=== PATIENT | female | born 1995 | race Caucasian/White ===

== ENCOUNTER 2023-04-04 08:37 | Emergency (ER) | payer BC, SELFPAY ==
--- NOTE | 2023-04-04 08:39 | ED.EAR ---
HPI - Ear Problem General Chief complaint: Ear Stated complaint: Earache Time Seen by Provider: 04/04/23 08:39 Source: patient Mode of arrival: ambulatory Limitations: no limitations History of Present Illness HPI Narrative: Torrie is a 28-year-old female patient presenting to clinic today with complaints of ear pain x2 days. She reports no known fever or chills. Is having pain to the left ear and the pain is radiating into her left side neck/throat. Related Data Home Medications Medication Instructions Recorded Confirmed buspirone 10 mg tablet 10 mg PO DAILY 04/04/23 04/04/23 sertraline 100 mg tablet 100 mg PO DAILY 04/04/23 04/04/23 Allergies Allergy/AdvReac Type Severity Reaction Status Date / Time Penicillins Allergy Rash Verified 04/04/23 08:51 Review of Systems Review of Systems: Pertinent positives per HPI. Patient denies any fever, chills, rash, headache, visual changes, dizziness, cough, shortness of breath, chest pain, palpitations, nausea, vomiting, diarrhea, constipation, abdominal pain, or any urinary issues. PMFSH Comments At the time of my signature, I reviewed and agree with the nursing past medical, surgical, social, and family history. There is no relevant family history pertinent to the patient complaint. Exam Narrative: General: Well-developed, well nourished, in no apparent distress Head: Normocephalic, atraumatic Eyes: Pupils equally round and reactive to light bilaterally, EOM intact, sclera and conjunctive clear, no discharge, lids normal Ears: TMs intact and clear, ear canals clear, no drainage, grossly hearing normal. Nose: Nares patent, no discharge, no inflammation, no sinus tenderness. Mouth: Oral pharynx without lesions or masses, good dentition, MMM. Neck: Supple, trachea midline, no enlargement of anterior or posterior cervical nodes, no thyroid masses or goiter palpable. Cardio: Regular rate and rhythm, s1 and s2 normal, no murmur appreciated. Resp: Clear to auscultation bilaterally, no rhonchi, rales, wheezing or rubs Course Course Emergency Course: Portions of this record may have been created with voice recognition software. Level of Care: Express Care Visit Vital Signs Vital signs: Vital signs reviewed Medical Decision Making MDM Narrative Medical decision making narrative: At the time of visit patient is resting comfortably on the exam table. Patient appears to be nontoxic. Strep test was performed and was negative. We will send for culture. I suspect patient has left-sided eustachian tube dysfunction. Supportive measures were discussed with the patient and they voiced understanding discharge instructions and agrees to treatment plan. Return precautions reviewed Differential Diagnosis Differential Diagnosis: Otitis media, otitis externa, eustachian tube dysfunction, cerumen impaction, serous otitis, upper respiratory infection Discharge Plan Discharge Clinical Impression: ETD (eustachian tube dysfunction) Qualifiers: Laterality: left Qualified Code(s): H69.92 - Unspecified Eustachian tube disorder, left ear Patient Disposition: Home, Self-Care Condition: Stable Instructions: Antibiotic Form, Earache (ED) Additional Instructions: Strep screen was negative in the clinic today. We will send for culture if this comes back positive we will contact him place you on antibiotics at that time. Increase fluids and stay well hydrated Tylenol/motrin for pain/fever Flonase and OTC antihistamines as directed Vicks vapor rub to open sinuses Sinus rinses for congestion Cepacol spray, cough drops, throat lozenges, warm tea with honey/lemon, gargle salt water to soothe throat BRAT diet for diarrhea Clear liquids x 24 hours then advance as tolerated for nausea/vomiting Go to the ED if you develop a worsening in your condition- high fever not controlled by Tylenol or Motrin, dehydration, weakness, lethargy, shortness of breath, or cristina
[2023-04-04 08:47] VITALS: BP 110/80; PULSE 99; RESP 16; TEMP 36.9; O2SAT 99
== END 2023-04-04 09:15 | disposition home or self-care (01) ==
PROVIDERS: Emergency Provider Nurse Practitioner Family; PCP Nurse Practitioner Family
DX: H69.92 Unspecified Eustachian tube disorder, left ear (principal)
CPT/HCPCS: 87081; 87880; 99213; G0463

== ENCOUNTER 2024-12-14 10:08 | Emergency (ER) | payer OTHER, BC, SELFPAY ==
--- NOTE | ~2024-12-14 | XR_ITS ---
EXAMINATION: XR ankle LT min 3V DATE: 12/14/2024 10:32 INDICATION: Left ankle injury TECHNIQUE: Anteroposterior, oblique, mortise, and lateral views of the left ankle were obtained. COMPARISON: None. FINDINGS: Alignment is normal. No fracture. Joint spaces are well maintained. No ankle joint effusion. Mild soft tissue swelling about the lateral malleolus. IMPRESSION: 1. No osseous abnormality. Reviewed, dictated and finalized at location A. IMPRESSION: 1. No osseous abnormality.
[2024-12-14 10:19] VITALS: BP 121/84; PULSE 90; RESP 18; TEMP 36.6; O2SAT 99
--- NOTE | 2024-12-14 11:03 | ED.LOWEXIN ---
HPI - Extremity Injury (Lower) General Chief Complaint: Extremity Injury, Lower Stated Complaint: L ANKLE INJURY Source: patient Mode of arrival: ambulatory Limitations: no limitations History of Present Illness HPI Narrative: 29-year-old female presented for complaint of left ankle pain and swelling following an injury yesterday. She states she felt ankle and fell to the ground. Since then she has had pain with weight-bearing and has used crutches from home. Denies numbness, tingling, weakness or deformity. Rates pain 3/10 at rest 7/10 with weight bearing, described as sharp. Related Data Home Medications ?Medication ?Instructions ?Recorded ?Confirmed ?Last Taken ?Type buspirone 10 mg tablet 10 mg PO DAILY 04/04/23 12/14/24 Unknown History sertraline 100 mg tablet 100 mg PO DAILY 04/04/23 12/14/24 Unknown History Allergies Allergy/AdvReac Type Severity Reaction Status Date / Time Penicillins Allergy Rash Verified 12/14/24 10:18 Review of Systems Review of Systems: CONSTITUTIONAL: Denies body aches, fever, chills EYES: Denies visual changes ENT: Denies rhinorrhea, congestion CARDIOVASCULAR: Denies chest pain, palpitations, or edema. RESPIRATORY: Denies cough or dyspnea. SKIN: Denies rash, itching, or wounds. MUSCULOSKELETAL: reports left ankle pain and swelling NEUROLOGIC: Denies headache, numbness, tingling, or weakness. All systems reviewed & are unremarkable except as noted in HPI and below PMFSH Comments At time of signature, I have reviewed and agree with nursing past medical, surgical, social and family history unless otherwise noted. Please see nursing chart for further information. There is no relevant family history pertinent to the presenting complaint Exam Narrative: GENERAL: Well-appearing, well-nourished, and in no acute distress. CHEST: Speaks in full sentences. No respiratory distress. HEART: Regular rate and rhythm. Normal and equal peripheral pulses. EXTREMITIES: Left ankle mild decreased range of motion due to pain with movement. Left lateral ankle localized swelling. No ecchymosis, No point tenderness. No open wounds, or obvious deformity; alignment normal, pulse palpable and equal bilaterally, skin warm, dry, pink. Capillary refill less than 3 seconds. SKIN: Warm, dry, no rash. NEURO: Alert and oriented x3. PSYCH: Normal mood and affect Course Course Emergency Course: Patient is aware of diagnosis, understands and agrees to treatment plan. Anticipatory guidance given. Patient agrees to follow-up as directed and is aware of reasons to seek care at the emergency department. Portions of this record may have been created with voice recognition software Level of Care: Express Care Visit Vital Signs Vital signs: Vital Signs Temperature 97.9 F 12/14/24 10:19 Pulse Rate 90 12/14/24 10:19 Respiratory Rate 18 12/14/24 10:19 Blood Pressure 121/84 12/14/24 10:19 Pulse Oximetry 99 12/14/24 10:19 Oxygen Delivery Room Air 12/14/24 10:19 Temperature 97.9 F 12/14/24 10:19 Pulse Rate 90 12/14/24 10:19 Respiratory Rate 18 12/14/24 10:19 Blood Pressure 121/84 12/14/24 10:19 Pulse Oximetry 99 12/14/24 10:19 Oxygen Delivery Room Air 12/14/24 10:19 Reviewed MDM - Extremity Injury (Lower) MDM Narrative Medical decision making narrative: Discussed physical exam findings and x-ray. Dale wrap applied. She will use the crutches she brought from home. Advised supportive measures and signs/symptoms to go to the ER. Pt is appropriate for outpt treatment and f/u. Differential Diagnosis Differential diagnosis: Likely ankle sprain and strain and ankle fracture Imaging Data Radiologist's impression: Patient: Torrie Hicks : 1995 MR#: [id number] Age: 29 Acct:[id number] [facility] ADM Date: 12/14/24Attending Dr: Ordering Physician: Tameka Spann APRN Date of Service: 12/14/24 Procedure(s): XR ankle LT min 3V Accession Number(s): [id number] cc: Tameka Spann APRN; HarinderShelley APN~ EXAMINATION: XR ankle LT min 3V DATE: 12/14/2024 10:32 INDICATION: Left ankle injury TECHNIQUE: Anteroposterior, oblique, mortise, and lateral views of the left ankle were obtained. COMPARISON: None. FINDINGS: Alignment is normal. No fracture. Joint spaces are well maintained. No ankle joint effusion. Mild soft tissue swelling about the lateral malleolus. IMPRESSION: 1. No osseous abnormality. Discharge Plan Discharge Clinical Impression: Ankle sprain and strain Patient Disposition: Home Condition: Stable Instructions: Antibiotic Form, Ankle Sprain (ED) Additional Instructions: Rest - avoid excessive walking. You can use the crutches as needed. bear weight as tolerated elevate the left leg; Apply ice 15-20 minute intervals several times a day Keep it wrapped with DALE or use a soft ankle splint Motrin 800mg every 8 hours, alternate with Tylenol 1000mg every 8 hours as needed Follow up with your primary care provider as needed in 1 week Go to the ER for worsening symptoms or concerns Patient Language: Romansh Prescriptions: New ibuprofen 800 mg tablet 800 mg PO TID PRN (Reason: pain) Qty: 15 0RF No Action sertraline 100 mg tablet 100 mg PO DAILY buspirone 10 mg tablet 10 mg PO DAILY Follow-up/Referrals: HARINDER,FRANSISCO CHOUDHURY [Primary Care Provider] Time of Disposition: 11:13
== END 2024-12-14 11:20 | disposition home or self-care (01) ==
PROVIDERS: Emergency Provider Nurse Practitioner Family; PCP Nurse Practitioner Family
DX: S93.402A Sprain of unspecified ligament of left ankle, initial encounter (principal); S96.912A Strain of unspecified muscle and tendon at ankle and foot level, left foot, initial encounter; X58.XXXA Exposure to other specified factors, initial encounter; F41.9 Anxiety disorder, unspecified
CPT/HCPCS: 73610; 99213; G0463